=== PATIENT | female | born 1945 | race Caucasian/White ===

== ENCOUNTER → 2021-03-19 | Outpatient (REF) | payer MEDICARE, BC ==
[2021-03-19 19:19] LABS: BACTERIA, URINE AUTO 1+ (NEGATIVE); MUCUS, URINE SMALL (NEGATIVE); RBC, URINE AUTO 4 /HPF (0-3); SQUAMOUS EPITHELIAL CELL UR AU 1 /HPF (0-6); WBC, URINE AUTO 60 /HPF (0-3)
== END ==
LOC: M SMT 17:22
PROVIDERS: ATTEND Specialist
DX: N39.0 Urinary tract infection, site not specified (principal)
CPT/HCPCS: 81015; 87088; 87186; G0463